=== PATIENT | female | born 1990 | race Caucasian/White ===

== ENCOUNTER 2016-07-15 15:01 | Emergency (ER) | payer SELFPAY ==
[~2016-07-15] VITALS: Ht 165.1 cm; Wt 56.8 kg
[2016-07-15 15:09] VITALS: BP 112/60
== END 2016-07-15 16:09 | disposition left against medical advice (07) ==
LOC: EMS 15:03
DX: O26.892 Other specified pregnancy related conditions, second trimester (principal); R10.9 Unspecified abdominal pain; Z3A.18 18 weeks gestation of pregnancy; Z53.21 Procedure and treatment not carried out due to patient leaving prior to being seen by health care provider